=== PATIENT | female | born 2000 | race Two or more races ===

== ENCOUNTER 2019-04-05 09:30 | Emergency (ER) | payer MEDICAID ==
[~2019-04-05] VITALS: Ht 165.1 cm; Wt 60.0 kg
[2019-04-05] MEDS ORDERED: ACETAMINOPHEN 500MG TABLET PO ONE (11:15)
[2019-04-05] MEDS ORDERED: TETANUS, DIPHTHERIA, PERTUSSIS VAC/PF 0.5ML (>7YR OLD) IM ONE (11:15)
[2019-04-05 11:57] LABS: BASOPHILS % 0.2 % (0.0-2.0); HEMATOCRIT. 42.3 % (36.0-48.0); HEMOGLOBIN. 14.4 g/dL (12.0-16.0); LYMPHOCYTES % 8.9 % (20.0-50.0); MEAN CORPUSCULAR HEMOGLOBIN 32.1 pg (28.0-32.0); MEAN CORPUSCULAR VOLUME 94.1 fL (81.0-99.0); MONOCYTES % 4.7 % (2.0-8.0); NEUTROPHILS % 86.2 % (40.0-76.0); PLATELET 235 x1000/uL (130-400); RED BLOOD CELL COUNT 4.49 mill/uL (4.2-5.4); RED CELL DISTRIBUTION WIDTH 13.7 % (11.6-14.6)
[2019-04-05 12:03] LABS: CHLORIDE 110 mEq/L (98-107)
[2019-04-05] MEDS ORDERED: ACETAMINOPHEN 500MG TABLET ONE (12:21)
[2019-04-05 14:22] VITALS: BP 128/72
[2019-04-05] MEDS ORDERED: IOHEXOL-300 100 ML BOTTLE ONE (15:22)
== END 2019-04-05 14:24 | disposition home or self-care (01) ==
LOC: ER 09:30
DX: S50.311A Abrasion of right elbow, initial encounter (principal); R07.89 Other chest pain; V43.52XA Car driver injured in collision with other type car in traffic accident, initial encounter; Y93.89 Activity, other specified; Y92.488 Other paved roadways as the place of occurrence of the external cause
CPT/HCPCS: 36415; 71045; 71260; 73080; 80053; 81025; 84484; 85025; 93005; 99285; Q9967